=== PATIENT | male | born 1965 | race Caucasian/White ===

== ENCOUNTER → 2024-02-20 16:31 | Outpatient (REF) | payer BC, SELFPAY | LOC: HWRAD 16:31 | PROVIDERS: ATTENDING PHYSICIAN Family Medicine | DX: M25.561 Pain in right knee (principal) | CPT/HCPCS: 73564 ==

== ENCOUNTER → 2024-03-03 06:30 | Outpatient (REF) | payer BC, SELFPAY | LOC: MRI 06:30 | PROVIDERS: ATTENDING PHYSICIAN Family Medicine | DX: M25.561 Pain in right knee (principal) | CPT/HCPCS: 73721 ==